=== PATIENT | female | born 1985 | race Caucasian/White ===

== ENCOUNTER 2021-12-30 13:45 | Emergency (ER) | payer SELFPAY ==
[~2021-12-30 13:45] MED LIST: IBUPROFEN800 MG PO; PREDNISONE 20MG20 MG PO; PROAIR HFA8.5 GM INH; ULTRAM50 MG PO
[2021-12-30] MEDS ORDERED: AMOXICILLIN500 MG PO (14:43)
[2021-12-30] MEDS ORDERED: IBUPROFEN800 MG PO (14:43)
== END 2021-12-30 14:45 | disposition home or self-care (01) ==
LOC: FER 13:45
DX: K04.7 Periapical abscess without sinus (principal); Z87.891 Personal history of nicotine dependence
CPT/HCPCS: 99282